=== PATIENT | female | born 1955 | race Caucasian/White ===

== ENCOUNTER 2021-03-21 14:53 | Outpatient (REF) | payer OTHER, SELFPAY ==
[2021-03-21 18:02] LABS: Bilirubin Small (Negative); Blood Large (Negative); Clarity Cloudy (Clear); Glucose 500 mg/dL (Negative); Ketones Trace mg/dL (Negative); Leukocyte Esterase Small (Negative); Nitrite Positive (Negative); Specific Gravity 1.025 (1.005-1.025); pH 5.5 (5-8)
[2021-03-21 18:34] LABS: Bacteria Many HPF (Negative); Casts Negative LPF (Negative); Crystals Negative HPF (Negative); Epithelial Cells Rare HPF (Negative); Mucus Negative (Negative); Other Cells Negative (Negative); RBC 20-50 HPF (0-2); WBC >50 HPF (0-5)
[2021-03-21 18:40] LABS: C & S Indicated? Yes
== END 2021-03-21 14:54 | disposition home or self-care (01) ==
LOC: LBN 14:53
PROVIDERS: PCP Nurse Practitioner Family; Visit Provider Radiology Radiation Oncology
DX: R30.0 Dysuria (principal)
CPT/HCPCS: 87077; 81003; 81015; 87086; 87186

== ENCOUNTER 2021-03-22 03:21 | Outpatient (CLI) | payer OTHER, SELFPAY ==
[2021-03-22 11:16] LABS: CREATININE 0.9 mg/dL (0.55-1.02)
== END 2021-03-22 03:22 | disposition home or self-care (01) ==
LOC: LBO 03:21
PROVIDERS: PCP Nurse Practitioner Family; Visit Provider Radiology Radiation Oncology
DX: C54.1 Malignant neoplasm of endometrium (principal)
CPT/HCPCS: 36415; 82565

== ENCOUNTER 2021-04-07 11:26 | Outpatient (CLI) | payer OTHER, SELFPAY ==
[2021-04-07 08:57] LABS: Abs Immature Grans 0.03 10^3/uL (0.0-0.06); Absolute Basophil Count 0.02 10^3/uL (0.0-0.2); Absolute Eosinophil Count 0.16 10^3/uL (0.0-0.7); Absolute Lymphocyte Count 0.95 10^3/uL (1.2-3.4); Absolute Monocyte Count 0.46 10^3/uL (0.1-0.8); Absolute Neutrophil Count 3.12 10^3/uL (1.2-6.7); Basophils % 0.4; Eosinophils % 3.4; HCT 31.1 % (36.0-46.0); Immature Grans % 0.6; MCHC 32.2 % (32.0-36.0); MCV 87.1 fL (80-95); MPV 9.4 fL (8.0-11.0); Monocytes % 9.7; Neutrophils % 65.9; Nucleated RBC 0 %; Platelet Count 108 10^3/uL (130-400); RBC 3.57 10^6/uL (3.93-5.22); RDW 15.2 % (11.7-14.6); RDW-SD 49.2 fL; WBC 4.74 10^3/uL (4.4-10.8)
== END 2021-04-07 11:27 | disposition home or self-care (01) ==
LOC: LBO 04-11 13:40
PROVIDERS: PCP Nurse Practitioner Family; Visit Provider Internal Medicine
DX: C54.1 Malignant neoplasm of endometrium (principal)
CPT/HCPCS: 85025

== ENCOUNTER 2021-04-18 17:04 | Emergency (ER) | payer OTHER, SELFPAY ==
[2021-04-18 17:12] VITALS: BP 162/64; PULSE 106; RESP 32; TEMP 38.3; O2SAT 97
--- NOTE | 2021-04-18 17:28 | ED.GENADUL_ITS ---
Discharge Plan Disposition Patient Disposition: AGAINST MEDICAL ADVICE Condition: Serious Discharge Details Clinical Impression: UTI (urinary tract infection), Fever, Hypomagnesemia, Thrombocytopenia Primary Care Provider: Karen Brumfield ED Provider: Georgina Lo Home Meds and New Rx's Prescriptions: New cephalexin 500 mg tablet 500 mg PO BID 10 Days Qty: 20 RF: 0 magnesium oxide 400 mg magnesium capsule 400 mg PO DAILY 5 Days Qty: 5 RF: 0 No Action metformin 1,000 mg Tablet 1,000 mg PO BID RF: 0 multivitamin Tablet 1 tab PO DAILY RF: 0 atorvastatin 20 mg Tablet 20 mg PO DAILY RF: 0 citalopram 10 mg Tablet 10 mg PO DAILY RF: 0 prochlorperazine maleate 10 mg Tablet 10 mg PO Q6H PRNRF: 0 nadolol 20 mg Tablet 20 mg PO DAILY RF: 0 propranolol 40 mg Tablet 40 mg PO DAILY RF: 0 ascorbic acid (vitamin C) 500 mg Tablet 500 mg PO BID RF: 0 pantoprazole [Protonix] 40 mg Tablet,Delayed Release (Dr/Ec) 40 mg PO DAILY RF: 0 furosemide 20 mg Tablet 20 mg PO DAILY RF: 0 polyethylene glycol 3350 17 gram/dose Powder 17 g PO DAILY RF: 0 ondansetron 4 mg Tablet,Disintegrating 4 mg PO Q8H PRNRF: 0 lisinopril 2.5 mg Tablet 2.5 mg PO DAILY RF: 0 spironolactone 50 mg Tablet 50 mg PO DAILY RF: 0 metoprolol tartrate 25 mg Tablet 25 mg PO DAILY RF: 0 calcium carbonate-vitamin D3 [Calcium 500 + D] 500 mg(1,250mg) -200 unit Tablet 1 tab PO BID RF: 0 Toujeo SoloStar U-300 Insulin 300 unit/mL (1.5 mL) Insulin Pen 40 unit SUBCUT BID RF: 0 Discharge Instructions Instructions: Urinary Tract Infection in Women (ED), Fever in Adults (ED), Hypomagnesemia (ED) Additional Instructions: At this time you have opted to leave AGAINST MEDICAL ADVICE prior to the complete work-up and treatment being completed. You have a urinary tract infection fever today your magnesium was low, your platelets are less than 100 with a level of 59 and you are dehydrated. I do recommend IV hydration IV antibiotics. Please take the antibiotics twice daily for the next 10 days. Increase oral fluids. Follow up with primary care provider in 2-3 days. Return to ED sooner if any worsening fever, pain, fall feeling sicker at any time or concerns. Increase oral fluids. Stand Alone Forms: Work Release Referrals: Karen Brumfield [Primary Care Provider] - Discharge Data Discharge Date/Time-TO BE ENTERED AT DEPARTURE: 04/18/21 18:35 Medical Decision Making 65-year-old female to the ER chief complaint of mechanical fall prior to arrival by transfer center and fever. Patient was at the cancer center for radiation treatment for history of cervical tumor treatment. She tripped, doorway landing on her knees and outstretched arms she did hit the top of her head and has an abrasion. Denies any loss of consciousness, no chest pain or shortness of breath. On arrival she is noted to have a fever she does endorse dysuria for the last 2 days and diarrhea for the last week which she report may be related to her radiation treatment. She was ambulatory in department upon arrival. She is alert and oriented x3, is declining head CT at this time. She is not taking any blood thinners or aspirin daily. She presents with her sister who report she has had frequent falls last fall was approximately 6 months ago during the winter in the parking lot. Critical lab value lactate 2.7 received from lab, CBC shows white blood cell count 4.6 months hemoglobin 9.9 hematocrit 30.6 platelet count is 59, lymphocytes 0.26, sodium 135 creatinine 1.2 GFR is 45 glucose 135 magnesium is one-point albumin 3.1, urine shows 100 protein moderate blood positive nitrite moderate leukocytes greater than 50 WBCs culture is pending at this time. 1817: Primary medical staff services manager that patient is requesting to have IV DC'd and to go home. I did discuss labs with patient including evidence of UTI, elevated lactate, low magnesium and thrombocytopenia with patient and male significant other at bedside. Patient verbalized understanding. She is declining to have IV antibiotics, did not want IV Toradol due to history of GI bleed with NSAIDs. At this time patient has UTI, hypomagnesemia, thrombocytopenia elevated lactate. Patient states that she will go home and rehydrate orally. I will place patient on cephalexin 500 mg twice daily x10 days and prescribed magnesium oxide 4 mg for 5 days for UTI and hypomagnesemia. I did discuss the seriousness of patient's condition and she verbalized understanding. Patient has opted to leave AGAINST MEDICAL ADVICE. Patient requesting to leave AMA. The patient appears clinically sober and is not under the influence of any known substances. Discussed risks and benefits with patient. Patient verbalizes understanding of situation and the risks of leaving including worsening condition, developing disability, including but not limited to . Discussed results of labs and imaging, if they were performed and recommendations for further treatment and/or observation. The patient verbalizes understanding of the results discussed. Every effort was made to involve family and situation discussed. At this time patient has opted to leave against medical advice. Patient is alert and oriented and has the capacity to make own decisions. HPI General Mode of arrival: ambulatory . Date/Time Provider Initiated Documentation: 04/18/21 17:06 . Limitations to Documentation: no limitations . Information obtained by: patient, family (Sister) and RN notes reviewed . HPI Narrative: 65-year-old female to the ER chief complaint of mechanical fall prior to arrival by transfer center and fever. Patient was at the cancer center for radiation treatment for history of cervical tumor treatment. She tripped, doorway landing on her knees and outstretched arms she did hit the top of her head and has an abrasion. Denies any loss of consciousness, no chest pain or shortness of breath. On arrival she is noted to have a fever she does endorse dysuria for the last 2 days and diarrhea for the last week which she report may be related to her radiation treatment. She was ambulatory in department upon arrival. She is alert and oriented x3, is declining head CT at this time. She is not taking any blood thinners or aspirin daily. She presents with her sister who report she has had frequent falls last fall was approximately 6 months ago during the winter in the parking lot. Related Data Home Medications Medication Instructions Recorded Confirmed ascorbic acid (vitamin C) 500 mg PO BID 04/18/21 04/18/21 atorvastatin 20 mg PO DAILY 04/18/21 04/18/21 calcium carbonate-vitamin D3 1 tab PO BID 04/18/21 04/18/21 [Calcium 500 + D] cephalexin 500 mg PO BID 10 Days #20 tab 04/18/21 citalopram 10 mg PO DAILY 04/18/21 04/18/21 furosemide 20 mg PO DAILY 04/18/21 04/18/21 insulin glargine U-300 conc 40 unit SUBCUT BID 04/18/21 04/18/21 [Yessica RadhaGene U-300 Insulin] lisinopril 2.5 mg PO DAILY 04/18/21 04/18/21 magnesium oxide 400 mg PO DAILY 5 Days #5 cap 04/18/21 metformin 1,000 mg PO BID 04/18/21 04/18/21 metoprolol tartrate 25 mg PO DAILY 04/18/21 04/18/21 multivitamin 1 tab PO DAILY 04/18/21 04/18/21 nadolol 20 mg PO DAILY 04/18/21 04/18/21 ondansetron 4 mg PO Q8H PRN 04/18/21 04/18/21 pantoprazole [Protonix] 40 mg PO DAILY 04/18/21 04/18/21 polyethylene glycol 3350 17 g PO DAILY 04/18/21 04/18/21 prochlorperazine maleate 10 mg PO Q6H PRN 04/18/21 04/18/21 propranolol 40 mg PO DAILY 04/18/21 04/18/21 spironolactone 50 mg PO DAILY 04/18/21 04/18/21 Previous Rx's Medication Instructions Recorded cephalexin 500 mg PO BID 10 Days #20 tab 04/18/21 magnesium oxide 400 mg PO DAILY 5 Days #5 cap 04/18/21 Allergies Allergy/AdvReac Type Severity Reaction Status Date / Time acetaminophen AdvReac GI Bleeding Unverified 04/18/21 17:23 ibuprofen AdvReac GI bleed Unverified 04/18/21 17:23 General Stated Complaint: GenMedical MICHOACANO: 2 Review of Systems All systems reviewed & are unremarkable except as noted in HPI and below Constitutional Constitutional: Reports as per HPI, Reports fever(s), Reports frequent falls and Denies headache(s) Eyes Eyes: Reports system reviewed and no additional complaints, except as documented ENT Ears, Nose, Mouth, and Throat: Reports system reviewed and no additional complaints, except as documented and Denies headache(s) Cardiovascular Cardiovascular: Denies chest pain and Denies dyspnea Respiratory Respiratory: Denies cough and Denies dyspnea Gastrointestinal Gastrointestinal: Denies abdominal pain, Denies hematochezia, Reports diarrhea, Denies nausea and Denies vomiting Genitourinary Genitourinary: Reports as per HPI, Reports dysuria and Reports pelvic pain (Currently undergoing daily radiation treatments for a cervical tumor) Musculoskeletal Musculoskeletal: Reports as per HPI and Denies deformity Integumentary/Breasts Skin/Breast: Reports wounds (Superficial abrasions noted to bilateral knees and top of scalp) Neurologic Neurologic: Reports frequent falls and Denies headache(s) [facility] Social History Smoking/Tobacco Use Status: Former Tobacco Use Smoking risk assessment performed?: Yes Alcohol Intake: never Drug use: Never Do you feel safe at home: Yes Do you feel safe in your relationship?: Yes Exam Narrative Exam Narrative: General: Well Developed, Awake and Alert, conversant. Skin: Warm and Dry HEENT: Head: No palpable deformities, Normocephalic. Abrasion noted to the frontal scalp no significant hematoma, crepitus or palpable skull fractures. Eyes: Pupils PERRLA, EOM's intact. No periorbital eccymosis or step off Ears: Canal patent. Tympanic membranes are clear . No gutierrez's sign, no hemptympanum. Nose/Face: Atraumatic. Facial bones nontender to palpation and stable with manipulation. Mouth/Throat: No intraoral trauma. Teeth and mandible are intact. Neck: No midline tenderness, no step off, no deformity to palpation of C-spine. Trachea midline. Chest: No surface trauma. Nontender without crepitus or deformity. Lungs clear to ausculatation bilaterally. Heart: RRR, no rubs, murmurs or gallop. Abdomen: No abrasions, ecchymosis, or surface trauma. Nondistended. Nontender to palpation no guarding, rebound, or rigidity. Pelvis: Nontender to palpation and stable to compression. Femoral pulses strong and equal Extremities superficial abrasions noted to the bilateral anterior knees sensation intact. Peripheral pulses intact and equal.h Neuro: ANO x4, GCS 15, cranial nerves II through XII intact. Motor and sensory exam nonfocal. Reflexes are symmetric. Skin Full body images: 1. Superficial abrasion small amount of ecchymosis surrounding 2. Superficial abrasion 3. Superficial abrasion Course Vital Signs Vital signs: Vital Signs Temperature 38.3 C H 04/18/21 17:12 Pulse 106 H 04/18/21 17:12 Respiratory Rate 32 H 04/18/21 17:12 Blood Pressure 162/64 H 04/18/21 17:12 Pulse Oximetry 97 04/18/21 17:12 Temperature 38.3 C H 04/18/21 17:12 Temperature Source Oral 04/18/21 17:12 Pulse 106 H 04/18/21 17:12 Respiratory Rate 32 H 04/18/21 17:12 Respiratory Effort Non-Labored 04/18/21 17:19 Blood Pressure 162/64 H 04/18/21 17:12 Blood Pressure Position Supine 04/18/21 17:12 Pulse Oximetry 97 04/18/21 17:12 Oxygen Delivery Method Room Air 04/18/21 17:12 Oxygen Flow Rate 0 04/18/21 17:12 Pain Level 0 04/18/21 17:12 Lab/Test Results Lab/Test Results: 04/18/21 17:26 Blood Blood Culture - Pending 04/18/21 17:26 Blood Blood Culture - Pending
--- NOTE | 2021-04-18 17:38 | NUR.NOTE ---
assisted to walk to BR, unsteady gait. does not use ambulation device
[2021-04-18 17:43] LABS: Abs Immature Grans 0.04 10^3/uL (0.0-0.06); Absolute Basophil Count 0.01 10^3/uL (0.0-0.2); Absolute Eosinophil Count 0.04 10^3/uL (0.0-0.7); Absolute Lymphocyte Count 0.26 10^3/uL (1.2-3.4); Absolute Monocyte Count 0.38 10^3/uL (0.1-0.8); Absolute Neutrophil Count 3.88 10^3/uL (1.2-6.7); Basophils % 0.2; Eosinophils % 0.9; HCT 30.6 % (36.0-46.0); HGB 9.9 g/dL (11.2-15.7); Immature Grans % 0.9; Lactate 2.7 mmol/L (0.6-1.4); Lymphocytes % 5.6; MCH 27.7 pg (27.0-33.0); MCHC 32.4 % (32.0-36.0); MCV 85.5 fL (80-95); MPV 9.5 fL (8.0-11.0); Monocytes % 8.2; Neutrophils % 84.2; Nucleated RBC 0 %; RBC 3.58 10^6/uL (3.93-5.22); RDW 15.7 % (11.7-14.6); RDW-SD 48.7 fL; WBC 4.61 10^3/uL (4.4-10.8)
[2021-04-18 17:45] LABS: Platelet Count 59 10^3/uL (130-400)
[2021-04-18 17:49] LABS: Bilirubin Negative (Negative); Blood Moderate (Negative); Clarity Cloudy (Clear); Glucose Negative (Negative); Ketones Negative (Negative); Leukocyte Esterase Moderate (Negative); Nitrite Positive (Negative); Specific Gravity 1.025 (1.005-1.025); Urobilinogen 0.2 EU/dL (Up TO 0.2); pH 5.5 (5-8)
[2021-04-18 17:56] LABS: ALT 33 U/L (14-59); AST 37 U/L (15-37); Albumin 3.1 g/dL (3.4-5.0); Alkaline Phosphatase 107 U/L (46-116); Anion Gap 8.7 mmol/L (3-11); BUN 17 mg/dL (7-18); Bilirubin, Total 0.7 mg/dL (0.2-1.0); CO2 24.3 mmol/L (21.0-32.0); CREATININE 1.2 mg/dL (0.55-1.02); Calcium 8.5 mg/dL (8.5-10.1); Chloride 102 mmol/L (98-107); Estimated GFR 45.23 (mL/min/1.73m2); Glucose 135 mg/dL (74-106); Magnesium 1.5 mg/dL (1.8-2.4); Potassium 4.3 mmol/L (3.5-5.1); Sodium 135 mmol/L (136-145); Total Protein 7.1 g/dL (6.4-8.2)
[2021-04-18 17:57] LABS: WBC >50 HPF (0-5)
[2021-04-18 17:58] LABS: Bacteria Packed HPF (Negative); C & S Indicated? Yes
[2021-04-18] MEDS: Cephalexin 500 MG CAP PO (18:21)
[2021-04-18] MEDS: Magnesium Oxide 400 MG TAB PO (18:21)
[2021-04-18] MEDS: Cephalexin 500 MG CAP, 4 CAPS/BTL PO (18:25)
== END 2021-04-18 18:35 | disposition left against medical advice (07) ==
PROVIDERS: Emergency Provider Registered Nurse Emergency; PCP Nurse Practitioner Family
DX: N39.0 Urinary tract infection, site not specified (principal); B96.1 Klebsiella pneumoniae [K. pneumoniae] as the cause of diseases classified elsewhere; R50.9 Fever, unspecified; E83.42 Hypomagnesemia; D69.6 Thrombocytopenia, unspecified; Z53.29 Procedure and treatment not carried out because of patient's decision for other reasons
CPT/HCPCS: 36415; 80053; 87040; 87077; 99283; 81003; 81015; 83605; 83735; 85025; 87086; 87186; 99284